=== PATIENT | female | born 1995 | race Caucasian/White ===

== ENCOUNTER → 2017-03-19 | Outpatient (CLI) | payer BC, OTHER ==
--- NOTE | ~2017-03-19 | EKG ---
[place] [address] [facility] [employer] [place] [address] ELECTROCARDIOGRAM REPORT Name: BANDARMATHIEU [id number] Admission: 03/19/17 Attend Phys: Apryl Varela MD Discharge: Date of : [birth year] Report #: [id number] THIS REPORT FOR: //name// [facility] Test Date: 2017-03-19 Test Time: 11:01:37 Pat Name: MATHIEU PORTILLO Department: Room: Gender: F [employer] Agent: Adama WEISS : 1995 Requested By: Apryl Varela Order Number: [id number] MD: Sean Lujan Measurements Intervals [place] Rate: 72 P: 78 HI: 112 QRS: 74 QRSD: 78 T: 34 QT: 373 QTc: 409 Interpretive Statements Sinus rhythm Borderline short HI interval No previous ECG available for comparison Electronically Signed On 03-21-2017 7:43:45 RN CORONARY CARE UNIT by Sean Lujan [email or web address] <ELECTRONICALLY SIGNED> By: Sean Lujan MD, [facility] 03/21/17 0743 1101 1101 Sean Lujan MD, FACC /EPI
== END ==
LOC: CV 10:27
DX: R00.0 Tachycardia, unspecified (principal); F90.1 Attention-deficit hyperactivity disorder, predominantly hyperactive type